=== PATIENT | female | born 1995 | race Caucasian/White ===

== ENCOUNTER 2023-11-13 20:05 | Emergency (ER) | payer OTHER, SELFPAY ==
[2023-11-13 20:16] VITALS: BP 142/84
[2023-11-13 20:56] VITALS: BMI 25.9
--- NOTE | 2023-11-13 21:56 | ED.GENMED ---
History of Present Illness
General
Chief Complaint: Rabies
Time Seen by Provider: 11/13/23 21:18
History of Present Illness
History of Present Illness:
28-year-old female without significant past medical history presenting to the emergency department for rabies vaccination. Patient is a vet computer systems technician, was scratched by a cat on October 22, however found out today that the cat was positive for rabies.
She reports that she did previously get prophylactic rabies vaccination in 2021, so needs additional rabies vaccination today. She was also bit on her hand, however has had no swelling or redness. She denies any fever, or additional acute medical
complaints
Phy Exam
Physical Exam
Physical Exam:
General: Well-appearing, no clinical signs of dehydration, nontoxic and in no acute distress
HEENT: protecting airway
Neck: appears supple
CV: Normal heart rate
Resp: No accessory muscle use, no increased work of breathing
Abd: Nondistended
Extremities: No deformities, no swelling, no bites or break in the skin to the right hand
Neuro: alert, no focal neurologic deficit
: deferred
Rectal: deferred
Psych: Normal affect
Skin: Intact
Course
Orders/Labs/Results
Orders:
Orders
11/13/23 21:45
Rabies Vaccine ([facility])/Pf [Rabavert Rabies Vacc W-Diluent] 2.5 unit IM .ONCE ONE
Vital Signs
Initial and Last Documented VS:
Initial Vital Signs
Temp Pulse Resp BP Pulse Ox
98 F 64 20 142/84 97
11/13/23 20:16 11/13/23 20:16 11/13/23 20:16 11/13/23 20:16 11/13/23 20:16
Last Documented Vital Signs
Temp Pulse Resp BP Pulse Ox
98 F 64 20 142/84 97
11/13/23 20:16 11/13/23 20:16 11/13/23 20:16 11/13/23 20:16 11/13/23 20:16
MDM/Problems Addressed
MDM/Problems Addressed:
28-year-old female without significant past medical history presenting for rabies vaccination. Patient was bit by a cat on October 22 that has since tested positive for rabies, however has previously received prophylactic rabies vaccination in 2021.
Vital signs are normal. Patient was bit on the right hand. On examination, nontoxic. No bite or break in the skin to the right hand. No swelling or deformity, no redness or signs of infection. Will administer tetanus vaccination. Patient is to
return on day 3 for additional vaccination per previous vaccinated [place] guidelines. Patient advised to come back to the emergency department. Return precautions discussed and patient verbalized understanding
*Critical Care Note
Total Time (30-74mins, 75-104mins- exclusive of procedures): Not Applicable
ED Attending Note
-
Portions of this chart may have been created with voice recognition software.� Occasional wrong word or��sound alike� substitutions may have occurred due to the inherent limitations of voice recognition software.
Discharge Plan
Departure
Patient Disposition: Home (Routine Discharge)
Date of Disposition: 11/13/23
Time of Disposition: 22:00
Patient with high blood pressure during this ER visit?: No
Condition: Good
Discharge Problem:
Need for prophylactic vaccination against rabies
Instructions: Animal Bites (DC), Rabies
Referrals:
Soheila Newton DO [Family Provider] -
Stand Alone Forms: Rabies Vaccine Post Exp Dosing
Activity Restrictions/Additional Instructions:
Please return to the emergency department on 11/15 for your rabies vaccination.
Please follow-up closely with your primary care physician.
Return to the emergency department for any worsening of your symptoms, or any development of chest pain, difficulty breathing, abdominal pain with persistent vomiting and inability to tolerate food or liquid by mouth (concern for dehydration),
weakness, headache or confusion, fever greater than 100.4, or any additional symptoms that are concerning to you.
Thank you for choosing [facility].
Interventions
Interventions:
*Risk Screen - Suicide Last Done: 11/13/23 20:16
*General Assessment Last Done: 11/13/23 20:16
*Neglect/Abuse Screening Last Done: 11/13/23 20:16
ED- Fall Risk Assessment Last Done: 11/13/23 20:16
*ED COVID-19 Vaccine History Last Done: 11/13/23 20:16
*Nursing Disposition Last Done: 11/13/23 23:07
Discharge Date and Time
Discharge Date/Time: 11/13/23 23:07
Print Language: BARBADIAN
[2023-11-13] MEDS: RABAVERT RABIES VACC W-DILUENT 2.5 UNIT IM (22:04)
== END 2023-11-13 23:07 | disposition home or self-care (01) ==
LOC: EMR 20:05
PROVIDERS: EMERGENCY PHYSICIAN Student in an Organized Health Care Education/Training Program; FAMILY PHYSICIAN Family Medicine
DX: Z20.3 Contact with and (suspected) exposure to rabies (principal); Z23 Encounter for immunization; W55.01XA Bitten by cat, initial encounter
CPT/HCPCS: 99282; 90471; 90675

== ENCOUNTER 2023-11-20 14:10 | Outpatient (RCR) | payer OTHER, SELFPAY ==
[2023-11-20 14:32] VITALS: BP 133/74
[2023-11-20] MEDS: RABAVERT RABIES VACC W-DILUENT 2.5 UNIT IM (14:44)
== END 2023-11-21 09:12 | disposition home or self-care (01) ==
LOC: OID 14:10
PROVIDERS: ATTENDING PHYSICIAN Student in an Organized Health Care Education/Training Program
DX: Z20.3 Contact with and (suspected) exposure to rabies (principal); Z23 Encounter for immunization
CPT/HCPCS: 90471; 90675